=== PATIENT | male | born 1985 | race Two or more races ===

== ENCOUNTER 2023-12-11 07:29 | Inpatient (IN) | payer MEDICAID ==
[~2023-12-11] VITALS: Ht 182.9 cm; Wt 64.0 kg
[2023-12-11 09:07] LABS: Alanine Aminotransferase 16 U/L (7-40); Albumin 4.1 g/dL (3.2-4.8); Alkaline Phosphatase 151 U/L (46-116); Anion Gap 5 (5-15); Aspartate Aminotransferase 14 U/L (13-40); Blood Urea Nitrogen 10 mg/dL (9-23); Calcium 9.4 mg/dL (8.7-10.4); Carbon Dioxide 26 mmol/L (20-30); Chloride 98 mmol/L (98-107); Glucose 109 mg/dL (74-106); Lipase 35 U/L (12-53); Magnesium 1.7 mg/dL (1.6-2.6); Potassium 4.1 mmol/L (3.5-5.1); Sodium 129 mmol/L (136-145)
[2023-12-11 09:08] LABS: Basophils # (auto) 0.1 10 ^3/uL (0-0.2); Basophils % (auto) 0.2 % (0.0-2.0); Bilirubin, Total 0.6 mg/dL (0.2-1.0); Eosinophils # (auto) 0 10 ^3/uL (0-0.8); Hematocrit 39.6 % (41.0-53.0); Hemoglobin 13.4 g/dL (13.5-17.5); Lymphocytes # (auto) 0.7 10 ^3/uL (0.4-5.4); Mean Corpuscular Hemoglobin 30.6 pg (28.0-32.0); Mean Corpuscular Hgb Conc. 33.9 g/dL (32.0-36.0); Mean Corpuscular Volume 90.4 fL (80.0-100.0); Monocytes # (auto) 1.7 10 ^3/uL (0-1.3); Neutrophils # (auto) 22.1 10 ^3/uL (1.6-8.6); Neutrophils % (auto) 89.8 % (37.0-80.0); Red Blood Cells 4.39 10^6/uL (4.5-5.90); Red Cell Distribution Width 13.6 % (11.8-14.3); Total Protein 7.9 g/dL (5.7-8.2); White Blood Cell 24.6 10^3/uL (4.4-10.8)
[2023-12-11] MEDS: SODIUM CHLORIDE 0.9% 1,000 ML IVB ONE ×2 (10:06→11:30)
[2023-12-11 10:13] LABS: Urine Bacteria None Seen /hpf (None Seen)
[2023-12-11] MEDS: diphenhdrAMINE HCL 50 MG/1 ML VL IV ONE (10:27)
[2023-12-11] MEDS: DexAMETHasone SOD PHOS 4 MG/1ML SDV INJ IV ONE (10:27)
[2023-12-11 10:58] LABS: Urine Blood Negative /uL (Negative); Urine Clarity Turbid (Clear); Urine Color Yellow (Yellow); Urine Hyaline Cast FEW /lpf (0 - 2); Urine Mucus FEW (None Seen); Urine Protein, UAD 2+ (Negative); Urine Urobilinogen Normal (Negative); Urine WBC 25 /hpf (0 - 3)
[2023-12-11 11:57] LABS: Amphetamine Screen, Urine Pos (NEGATIVE); Barbiturate Scree,Urine Neg (NEGATIVE); Benzodiazephine Screen, Urine Neg (NEGATIVE)
[2023-12-11 11:58] LABS: Cannabinoid Screen, Urine Pos (NEGATIVE); Cocaine Screen, Urine Neg (NEGATIVE); Opiate Scree,Urine Neg (NEGATIVE); Phencyclidine Screen, Urine Neg (NEGATIVE)
[2023-12-11] MEDS: SODIUM CHLORIDE 0.9% 1,000 ML IV ONE (12:36)
[2023-12-11] MEDS: cefTRIAXone 1GM/50ML D5W 50 ML IV ONE (12:36)
[2023-12-11 15:00] VITALS: TEMP 98.2
[2023-12-11] MEDS ORDERED: ONDANSETRON HCL 4 MG/2 ML VIAL IV PRN (17:15)
[2023-12-11] MEDS ORDERED: DOCUSATE SOD 100 MG CAP PO PRN (17:15)
[2023-12-11] MEDS ORDERED: NITROGLYCERIN 0.4 MG SL TAB SL PRN (17:15)
[2023-12-11] MEDS ORDERED: MORPHINE SULFATE INJ 2 MG/ml SYRG IV PRN ×2 (17:15)
[2023-12-11] MEDS ORDERED: VANCOMYCIN PER PHARMACY 0 MG IV SCH (17:15)
[2023-12-11] MEDS ORDERED: HYDROcodone-ACET 5/325MG TAB PO PRN (17:15)
[2023-12-11] MEDS ORDERED: ACETAMINOPHEN 325 MG TAB PO PRN (17:15)
[2023-12-11] MEDS ORDERED: AMPICILLIN & SULBACTAM SODIUM 3 GM in SODIUM CHL 0.9% 100 ML IV SCH (17:15)
[2023-12-11 20:01] VITALS: BP 97/58; PULSE 120; RESP 18; O2SAT 100
[2023-12-11] MEDS ORDERED: VANCOMYCIN 1GM/200ML 200 ML IV ONE (20:30)
== END 2023-12-11 22:35 | disposition left against medical advice (07) | DRG 720 ==
LOC: ER 07:29 → TELE 17:18
PROVIDERS: ADMIT Nurse Practitioner Family; ATTEND Nurse Practitioner Family
DX: A41.9 Sepsis, unspecified organism (principal); E87.1 Hypo-osmolality and hyponatremia; T63.311A Toxic effect of venom of black widow spider, accidental (unintentional), initial encounter; N30.00 Acute cystitis without hematuria; F12.10 Cannabis abuse, uncomplicated; F15.10 Other stimulant abuse, uncomplicated; L08.9 Local infection of the skin and subcutaneous tissue, unspecified; S60.561A Insect bite (nonvenomous) of right hand, initial encounter; Y93.89 Activity, other specified; Y92.89 Other specified places as the place of occurrence of the external cause; Y99.8 Other external cause status
CPT/HCPCS: 36415; 70486; 71046; 80053; 80307; 81001; 82550; 83690; 83735; 85025; 87040; 96374; 96375; G0378; J1100